=== PATIENT | male | born 1955 | race African-American/Black ===

== ENCOUNTER 2019-07-05 13:10 | Inpatient (IN) ==
[2019-07-05] MEDS ORDERED: ROCEPHIN 1 GM in NS 50 ML IV ONE (13:35)
[2019-07-05] MEDS ORDERED: ZITHROMAX 500 MG/NS 500 MG/250 ML IVPB IV ONE (13:35)
[2019-07-05] MEDS ORDERED: DUONEB (A & A) INH ONE (13:35)
[2019-07-05] MEDS ORDERED: SOLU-MEDROL IV ONE (13:35)
--- NOTE | 2019-07-05 13:57 | Diag Imaging Result Doc PS360 ---
EXAM: CHEST-PORTABLE - 07/05/2019 HISTORY: cough TECHNIQUE: Portable chest COMPARISON: 06/30/2019 FINDINGS: There is cardiomegaly similar to prior. There is mild prominence of central vascular markings and mild prominence of basilar interstitial markings similar to prior. There is no dense consolidation, pleural effusion, or pneumothorax identified. IMPRESSION: Stable exam compared to prior. Electronically signed by Boone Real 07/05/2019 1:55 PM
[2019-07-05 13:59] LABS: BASO# 0.04 X1000 (0.0-0.2); BASO% 0.4 % (0.0-0.8); HEMATOCRIT 32.9 % (42.0-52.0); HEMOGLOBIN 10.1 g/dL (14.0-18.0); LYMPH# 0.95 X1000 (1.2-3.4); LYMPH% 9.5 % (20.5-51.1); MCH 26.3 PG (27-31); MCHC 30.7 g/dL (33-37); MCV 85.7 FL (81-99); MONO# 1.76 X1000 (0.11-0.59); MONO% 17.6 % (1.7-9.3); MPV 8.7 FL (7.4-10.4); NEUT# 7.15 X1000 (1.4-6.5); NEUT% 71.5 % (42.2-75.2); PLT 298 X1000 (130-400); RBC 3.84 XMIL (4.7-6.1); RDW 16.9 % (11.5-14.5)
[2019-07-05 14:18] LABS: ALB/GLOB RATIO 1.4; ALBUMIN 4.2 g/dL (3.5-5.0); CALCIUM 9.2 mg/dL (8.8-10.2); CREATININE 1.5 mg/dL (0.7-1.2); POTASSIUM 3.4 mmol/L (3.5-5.1); TOTAL BILIRUBIN 0.88 mg/dL (0.20-1.00); TOTAL PROTEIN 7.2 g/dL (6.3-8.3)
[2019-07-05] MEDS ORDERED: LASIX IV ONE (14:38)
[2019-07-05 15:05] LABS: URINE SOURCE CLEAN CATCH
--- NOTE | 2019-07-05 15:15 | PROVIDER DOCUMENTATION ---
This chart was entered by Pratibha Lloyd Scribe, acting as scribe for Blanca Kumar MD. HPI-Respiratory General - General Chief Complaint: SEPSIS ALERT - D Stated Complaint: SOB Time Seen by Provider: 07/05/19 13:30 Source: patient Allergies/Adverse Reactions: Patient Allergies Allergy/AdvReac Type Severity Reaction Status Date / Time lisinopril AdvReac Severe ANGIOEDEMA Verified 07/11/18 13:04 Home Medications: Home Medication List Medication Instructions Recorded Confirmed Last Taken Type Amlodipine [Norvasc] 10 mg PO DAILY 07/31/15 07/05/19 07/12/18 05:00 History Fenofibrate 160 mg PO DAILY 07/31/15 07/05/19 07/11/18 History Hydralazine [Apresoline] 50 mg PO TID 07/31/15 07/05/19 07/11/18 History ATORVAstatin [Lipitor] 80 mg PO QHS 07/11/18 07/05/19 07/11/18 History Albuterol Sulfate [Proair Hfa] 8.5 gm IH PRN PRN 07/11/18 07/05/19 Unknown History Apixaban [Eliquis] 5 mg PO DAILY 07/11/18 07/05/19 07/10/18 History Budesonide/Formoterol Fumarate 10.2 gm IH PRN PRN 07/11/18 07/05/19 07/12/18 05:00 History [Symbicort 160-4.5 Mcg Inhaler] Carvedilol 25 mg PO BID 07/11/18 07/05/19 07/12/18 05:00 History Furosemide 40 mg PO DAILY 07/11/18 07/05/19 07/11/18 History Isosorbide Dinitrate 20 mg PO DAILY 07/11/18 07/05/19 07/11/18 History Metolazone 2.5 mg PO EVERY OTHER DAY 07/11/18 07/05/19 07/11/18 History Doxycycline Monohydrate 100 mg PO BID #20 cap 06/30/19 Unknown Rx Tramadol [Ultram] 50 mg PO Q6H PRN PRN #22 tab 06/30/19 Unknown Rx - History of Present Illness-Resp Nature of Presenting Problem: 63 y/o male presents to ED with SOB and productive cough onset 1 week ago and worsening last night. Pt reports he was seen in ED recently for rib pain and dx with bronchitis. Pt states he has not been able to sleep for the past 3 days due to his symptoms. Pt reports hx afib and is on Eliquis. O2 sats in the 80s on room air. Pt states he is not on home O2. Pt has hx COPD. Pt is alert and oriented. Quality of Pain: reports: none Severity in ED: reports: mild Onset/Duration: reports: 1 week ago Timing: reports: still present, getting worse Context: reports: other (hx COPD) Exposure: reports: other (hx COPD) Cough Quality/Degree: reports: productive cough Episode Frequency: chronic episodes (hx COPD) Current Respiratory Medication Therapy: Initiated see nurses note Modifying Factors: improves with: oxygen. worse with: lying down Associated Symptoms: reports: cough (productive), shortness of breath, short of breath Similar Symptoms Previously?: Yes (hx COPD) Recently seen or treated by another doctor?: No Review of Systems - Adult - REVIEW OF SYSTEMS - ADULT Constitutional: denies: chills, fever Eyes: reports: no symptoms reported Ears, Nose, Mouth & Throat: reports: no symptoms reported Cardiovascular: denies: chest pain, palpitations Respiratory: reports: cough (productive), shortness of breath Gastrointestinal: reports: no symptoms reported Genitourinary: reports: no symptoms reported Musculoskeletal: reports: no symptoms reported Integumentary: reports: no symptoms reported Neurological: reports: no symptoms reported Psychiatric: reports: no symptoms reported Endocrine: reports: no symptoms reported Hematologic/Lymphatic: reports: no symptoms reported Allergic/Immunologic: reports: no symptoms reported All Other Systems: Reviewed and Negative Past History - Adult - PAST MEDICAL HISTORY-ADULT Review of Records: reports: Old Records Reviewed, Nursing Assessment Review, Medications Reviewed Major Childhood Illnesses: reports: denies history Cardiovascular: reports: A-Fib, CAD, CHF, HTN Respiratory: reports: COPD Gastrointestinal: reports: denies history Obstetrical/Gynecological: reports: denies history Genitourinary: reports: denies history Musculoskeletal: reports: denies history Neurological: reports: denies history Endocrine/Immune: reports: denies history Other Conditions: reports: denies history - PRIOR SURGERIES/PROCEDURES Surgical/Procedure History: reports: hernia repair - IMMUNIZATION STATUS Childhood Immunizations: See Nurse Assessment Flu Vaccine: See Nurse Assessment - FAMILY HISTORY Family History: reviewed, not pertinent - SOCIAL HISTORY Smoking: greater than 1 pack/day Provider spent 3-5 mins advising pt. on dangers of tobacco.: Discussed manners to quit use, and f/u contacts for add'l counseling. Substance Use: none/never Alcohol Use Frequency: never Living Situation: family Physical Exam-General - PHYSICAL EXAM-ADULT Initial Vital Signs Reviewed: Yes (O2 sat 90% on 2L) - CONSTITUTIONAL General Appearance: appears well, alert, no apparent distress - EYES Eyes: PERRL/EOMI, pink conjunctivae - HEAD, EARS, NOSE, MOUTH & THROAT HENMT: normocephalic/atraumatic, normal ENT inspection. negative: moist mucous membranes (dry) - NECK Neck: non-tender, full range of motion - RESPIRATORY Respiratory: chest non-tender, wheezing (R upper lobe). negative: normal breath sounds (tight breath sounds; minimal air movement) - CARDIOVASCULAR Cardiovascular: normal peripheral pulses, regular rate, rhythm - GASTROINTESTINAL (ABDOMEN) Abdominal Exam: normal bowel sounds, non tender, distended - MUSCULOSKELETAL Back Exam: normal inspection, no CVA tenderness, no vertebral tenderness Extremity: normal range of motion, non-tender - SKIN Integumentary: normal color, warm/dry - NEUROLOGIC Neurologic: grossly normal - PSYCHIATRIC Psych/Mental Status: normal mood/affect, normal thought content, normal thought process, oriented x 3 - HEART Score HEART Score: History: Slightly Suspicious HEART Score: Age: 45-65 Years HEART Score: Risk Factors for Atherosclerotic Disease: > or = 3 Risk Factors or History of Atherosclerotic Disease Progress - PLAN OF CARE/RESULTS Progress/Plan/Lab Results: Vital Signs - 8 hr 07/05/19 13:19 07/05/19 13:52 Temperature 97.8 F Pulse Rate 92 H 82 Respiratory Rate 26 H 23 Blood Pressure 110/74 O2 Sat by Pulse Oximetry 82 L 93 L Laboratory Results - last 24 hr 07/05/19 07/05/19 07/05/19 13:35 13:35 13:37 WBC 10.00 RBC 3.84 L Hgb 10.1 L Hct 32.9 L MCV 85.7 MCH 26.3 L MCHC 30.7 L RDW Std Deviation 16.9 H Plt Count 298 MPV 8.7 Immature Gran % (Auto) 0.0 Neut % (Auto) 71.5 Lymph % (Auto) 9.5 L Garza % (Auto) 17.6 H Eos % (Auto) 1.0 Baso % (Auto) 0.4 Immature Gran # (Auto) 0.00 Neut # (Auto) 7.15 H Lymph # (Auto) 0.95 L Garza # (Auto) 1.76 H Eos # (Auto) 0.10 Baso # (Auto) 0.04 Sodium Potassium Chloride Carbon Dioxide Anion Gap BUN Creatinine Estimated GFR/1.73 m2 BUN/Creatinine Ratio Glucose Calculated Osmolality Calcium Total Bilirubin AST ALT Alkaline Phosphatase Creatine Kinase 117 Troponin T < 0.010 Mbj-A-Bpdccoftygx Pept Total Protein Albumin Globulin Albumin/Globulin Ratio Plasma Lactate Urine Source 07/05/19 07/05/19 07/05/19 13:37 13:37 13:37 WBC RBC Hgb Hct MCV MCH MCHC RDW Std Deviation Plt Count MPV Immature Gran % (Auto) Neut % (Auto) Lymph % (Auto) Garza % (Auto) Eos % (Auto) Baso % (Auto) Immature Gran # (Auto) Neut # (Auto) Lymph # (Auto) Garza # (Auto) Eos # (Auto) Baso # (Auto) Sodium 140 Potassium 3.4 L Chloride 93 L Carbon Dioxide 35 Anion Gap 12 BUN 35 H Creatinine 1.5 H Estimated GFR/1.73 m2 57 BUN/Creatinine Ratio 23 Glucose 112 H Calculated Osmolality 288 Calcium 9.2 Total Bilirubin 0.88 AST 24 ALT 11 Alkaline Phosphatase 98 Creatine Kinase Troponin T Pdl-F-Bpsgtpwyyoy Pept 9093 H Total Protein 7.2 Albumin 4.2 Globulin 3.0 Albumin/Globulin Ratio 1.4 Plasma Lactate 1.2 Urine Source 07/05/19 14:59 WBC RBC Hgb Hct MCV MCH MCHC RDW Std Deviation Plt Count MPV Immature Gran % (Auto) Neut % (Auto) Lymph % (Auto) Garza % (Auto) Eos % (Auto) Baso % (Auto) Immature Gran # (Auto) Neut # (Auto) Lymph # (Auto) Garza # (Auto) Eos # (Auto) Baso # (Auto) Sodium Potassium Chloride Carbon Dioxide Anion Gap BUN Creatinine Estimated GFR/1.73 m2 BUN/Creatinine Ratio Glucose Calculated Osmolality Calcium Total Bilirubin AST ALT Alkaline Phosphatase Creatine Kinase Troponin T Wfo-U-Eiqzzxbheab Pept Total Protein Albumin Globulin Albumin/Globulin Ratio Plasma Lactate Urine Source CLEAN CATCH Orders Category Date Time Status Cardiac Monitoring DIRECTED Care 07/05/19 14:41 Active IV Insertion ORDERED Care 07/05/19 14:41 Active Notify MD of + Sepsis Screen NOW Care 07/05/19 14:41 Active Notify Physician As Ordered Care 07/05/19 14:41 Active Saline Loc NOW Care 07/05/19 13:35 Active CHEST-PORTABLE [RAD] Stat Exams 07/05/19 13:36 Completed BLOOD CULTURE [BLDCUL] Stat Lab 07/05/19 13:39 Results CBC WITH DIFF [HEME] Stat Lab 07/05/19 13:37 Completed CK PROFILE [SP CHEM] Stat Lab 07/05/19 13:35 Completed COMPREHENSIVE METABOLIC PANEL [CHEM] Stat Lab 07/05/19 13:37 Completed LACTATE, PLASMA [CHEM] Q3H Lab 07/05/19 17:30 Uncollected LACTATE, PLASMA [CHEM] Q3H Lab 07/05/19 20:30 Uncollected LACTATE, PLASMA [CHEM] Stat Lab 07/05/19 13:37 Completed PRO B-NATRIURETIC PEPTIDE Stat Lab 07/05/19 13:37 Completed PROTIME WITH INR [COAG] Stat Lab 07/05/19 13:35 Received PTT [COAG] Stat Lab 07/05/19 13:35 Received SPUTUM CULTURE WITH GRAM STAIN [RM] Urgent Lab 07/05/19 13:35 Uncollected TROPONIN T Stat Lab 07/05/19 13:35 Completed URINALYSIS W/POSS RFLX CULT [URINALYSIS] Stat Lab 07/05/19 14:59 Results Albuterol 2.5MG/Ipratrop 0.5MG [Duoneb (A & A)] Med 07/05/19 13:35 Discontinued 9 ml INH NOW ONE Azithromycin 500 mg/Ns [Zithromax 500 mg/Ns] Med 07/05/19 13:35 Discontinued 500 mg in 250 ml IV NOW CefTRIAXONE [Rocephin] 1 gm Med 07/05/19 13:35 Discontinued 0.9% Sodium Chloride Inj [Ns] 50 ml IV NOW Furosemide [Lasix] Med 07/05/19 14:38 Discontinued 40 mg IV NOW ONE Methylprednisolone Sod Succ [Solu-Medrol] Med 07/05/19 13:35 Discontinued 125 mg IV NOW ONE Aerosol Treatments Routine Oth 07/05/19 13:36 Completed Aerosol Treatments Stat Oth 07/05/19 13:36 Completed Oxygen Device Stat Oth 07/05/19 14:41 Completed Pulse Oximetry Stat Oth 07/05/19 13:35 Completed Result Diagrams: 07/05/19 13:37 07/05/19 13:37 - XRAY 1 XRAY Study: Chest Impression: See EMR Report ([facility] - [address], [address], [place] [address] [facility] - [address] [place] [address] Department of Imaging Patient: PRIYA REEDER Date: 07/05/19MR#: [id number] : 1955DM Status: PRE ERAcct#: [id number] Age/Sex: 63/MRoom/Bed: Loc: ED Ordering Physician: Blanca Kumar MD Family Physician: Boone Luo MD Reason for Procedure: cough Signed EXAM: CHEST-PORTABLE - 07/05/2019 HISTORY: cough TECHNIQUE: Portable chest COMPARISON: 06/30/2019 FINDINGS: There is cardiomegaly similar to prior. There is mild prominence of central vascular markings and mild prominence of basilar interstitial markings similar to prior. There is no dense consolidation, pleural effusion, or pneumothorax identified. IMPRESSION: Stable exam compared to prior. Electronically signed by Boone Real 07/05/2019 1:55 PM 07/05/19 1355 Interpreting Physician: Boone Real MD Dictated Date/Time: 07/05/19 1354 cc: Blanca Kumar MD; Boone Espinoza MD) - CONSULTS/PCP/HOSPITALIST Notification #1 *Consult/PCP/Hospitalist*: TOD Roa for hospitalist Time Discussed: 14:43 Reason/Comments: COPD exacerbation Consult Disposition: Admit Departure - Departure Date of Disposition Decision: 07/05/19 Time of Disposition Decision: 14:43 DIAGNOSIS: COPD exacerbation, Tobacco use CHF exacerbation Qualifiers: Heart failure type: unspecified Qualified Code(s): I50.9 - Heart failure, unspecified Disposition: ADMITTED INPATIENT 09 Certified Medical Emergency: Emergent Condition: Stable Referrals and Follow-Ups: Boone Luo MD [Primary Care Provider] - Discharge Education: Steps to Quit Smoking, Pzuw-wk-[id number] - Critical Care Note This patient required my direct & personal management of CC.: No Attestation - Physician/ JACE Attestation Patient care was provided by Advanced Practice Provider:: No The physician spent face to face time with patient:: Yes Advanced Practice Provider documentation review:: Supervising physician onsite and consulted in the evaluation and care of this patient. The physician did have a face to face encounter with the patient. This chart was documented by the indicated scribe, (Pratibha Lloyd, Scribsharlene) and accurately reflects the services I performed and decisions made by me, Blanca Kumar MD, as attested by the provider's signature.
[2019-07-05 15:17] LABS: PROTIME 23.2 Seconds (11.0-16.0)
[2019-07-05 15:22] LABS: BILIRUBIN URINE NEGATIVE (NEGATIVE); BLOOD URINE NEGATIVE (NEGATIVE); COLOR YELLOW; GLUCOSE URINE NEGATIVE (NEGATIVE); KETONE URINE NEGATIVE (NEGATIVE); LEUKOCYTES URINE NEGATIVE (NEGATIVE); NITRITE URINE NEGATIVE (NEGATIVE); PROTEIN URINE NEGATIVE (NEGATIVE); SP GRAVITY URINE 1.017; TURBIDITY URINE CLEAR (CLEAR); UROBILINOGEN URINE NORMAL (NORMAL)
[2019-07-05 15:26] LABS: UR EPITHELIAL CELLS <10 /HPF (<10); URINE BACTERIA NEGATIVE /HPF; URINE RBC <10 /HPF (<10); URINE WBC <10 /HPF (<10)
[2019-07-05 15:41] LABS: URINE CASTS NONE SEEN; URINE CRYSTALS NONE SEEN; URINE YEAST NONE SEEN
[2019-07-05] MEDS ORDERED: DUONEB (A & A) INH PRN (15:41)
[2019-07-05 17:06] LABS: ALLEN TEST NO; BE 13.4 mmoll (-3.0-3.0); BLOOD TYPE ARTERIAL; HCO3-(ACT) 35.2 mmoll (20.0-26.0); METHB 0.8 % (0.0-1.5); O2(CT) 12.7 mL/dL (15.0-23.0); PO2(98.6) 64 mmHg (60-100); SAMPLE BLOOD; SAO2 96.9 % (95.0-100.0); THB 10.4 g/dL (11.5-17.4); pH(98.6) 7.48 (7.35-7.45)
[2019-07-05 17:08] LABS: MODALITY VENTIMASK; O2HB 86.6 % (95.0-99.0); PCO2(98.6) 52 mmHg (35-45)
--- NOTE | 2019-07-05 17:33 | HISTORY AND PHYSICAL ---
HISTORY AND PHYSICAL ADDENDUM: The patient seen and examined by me face to face. All the laboratory, vital signs, and images were reviewed. The patient presented with severe shortness of breath. Apparently, he fell a few days ago and he hit his thorax. He was diagnosed at that time also with bronchitis. He has been having worsening symptoms of shortness of breath for 1 week now. He does have a history of smoking and actually history of smoking around 1 pack a day. He started smoking in 1976. He has a history of atrial fibrillation on chronic anticoagulation, tobacco abuse, hypertension, dyslipidemia, and COPD. He seems to have COPD exacerbation at this moment as he has been coughing up some phlegm which is yellowish. He denies fever. No chest pain, but he complains of shortness of breath. This patient will be placed on oxygen. He is hypoxemic. I will get an ABG done right now to see if he needs to be placed on a BiPAP machine. I will put him back on his home medications as well, including the blood thinners. He will get steroids and breathing treatment as well. I agree with the rest of the nurse practitioner's assessment and plan. cc: Camilo Glasgow MD
--- NOTE | 2019-07-05 18:59 | HISTORY AND PHYSICAL ---
CHIEF COMPLAINT: Shortness of breath. HISTORY OF PRESENT ILLNESS: This is a 63-year-old gentleman with a history of COPD, atrial fibrillation, hypertension, who presents to the emergency room complaining of increasing shortness of breath and a productive cough that has been present for a little over a week. He states in the last 24 hours it progressed and he has been unable to sleep. Of note, he was evaluated in the emergency room for these same symptoms on June 30. At that time he was diagnosed with bronchitis, given doxycycline and tramadol and discharged from the emergency room. He states that after the 2nd or 3rd dose of doxycycline that he started feeling as if his throat was getting "I felt my throat was getting thicker inside maybe swelling and I had to work a little harder to breeze." He also stated that his tongue and lips felt funny. He denied any itching or rash. PAST MEDICAL HISTORY: COPD, atrial fibrillation, hypertension. PAST SURGICAL HISTORY: Hernia repair. SOCIAL HISTORY: He smokes about a pack a day. He denies alcohol or illicit drug use. FAMILY HISTORY IS: Positive for hypertension and COPD in his parents. REVIEW OF SYSTEMS: Discussed with the patient with pertinent positives stated in the HPI. He denies any syncope or dizziness, any chest pain or palpitations, any nausea, vomiting, diarrhea, constipation, black or bloody vomitus or stools, hematuria, dysuria, frequency, urgency. PHYSICAL EXAMINATION: GENERAL: This is a 63-year-old gentleman who is sitting up on the side of the bed in the emergency room in no distress. VITAL SIGNS: Blood pressure is 106/60 with a heart rate of 90, respirations are 17, temperature is 97.8 degrees with room air O2 saturation on arrival was 82, on 2 L nasal cannula they have increased to 90 to 92 percent. HEENT: Head is normocephalic, atraumatic. Mucous membranes are moist. NECK: Supple with trachea midline. CARDIOVASCULAR: Regular rate and rhythm. S1 and S2 are appreciated. PULMONARY: Has wheezes scattered throughout. Chest rises and falls symmetric respiration. Chest wall is nontender to palpation. GASTROINTESTINAL: Abdomen large, soft, nontender, nondistended with bowel sounds in all 4 quadrants. GENITOURINARY: No CVA or suprapubic tenderness. NEUROLOGIC: He is alert and oriented x3. SKIN: Warm and dry. LABS: WBC is 10 with hemoglobin 10.1, hematocrit 32.9 and platelets of 298,000. Sodium 140, potassium 3.4, BUN 35, creatinine 1.5 with a glucose of 112. Troponin is less than 0.010 with a proBNP of 9093. Urinalysis is essentially negative. Chest x-ray reveals cardiomegaly, mild prominence of central vascular markings, mild prominence of basilar interstitial markings similar to prior. There is no dense consolidation, pleural effusions or pneumothorax identified. ASSESSMENT AND PLAN: 1. Chronic obstructive pulmonary disease acute exacerbation. 2. Acute hypoxemic respiratory failure. 3. Acute kidney injury. 4. History of atrial fibrillation on chronic anticoagulation. 5. Hypertension. 6. Possible allergic reaction to doxycycline. PLAN: The patient will be admitted to the medical-surgical floor and placed on telemetry. We will identify home medicines and continue as appropriate. We will obtain an echocardiogram, DuoNeb q.4 hours with q.2 hours p.r.n., steroids to taper. Start Zyrtec, Zantac and Benadryl for possible allergic reaction. Will continue Rocephin and azithromycin for antibiotic coverage. Any further antibiotics will be culture driven. Check a CBC and CMP in the morning. Plan was discussed with Dr. Bergeron. Further treatments pending hospital course. Dictated by TOD Lima for Camilo Glasgow MD cc: TOD Lima MD
[2019-07-05] MEDS: SYMBICORT 160/4.5 MICROGM INHALER INH SCH (19:45)
[2019-07-05] MEDS: DUONEB (A & A) INH SCH ×2 (19:45→23:02)
[2019-07-05] MEDS: ELIQUIS PO SCH (20:12)
[2019-07-05] MEDS: COREG PO SCH (20:12)
[2019-07-05] MEDS: ZANTAC PO SCH (20:12)
[2019-07-05] MEDS: APRESOLINE PO SCH ×2 (23:53)
[2019-07-05] MEDS: BENADRYL PO SCH ×2 (23:54)
[2019-07-05] MEDS: SOLU-MEDROL IV SCH ×2 (23:55)
[2019-07-05] MEDS: ROCEPHIN 1 GM in NS 50 ML IV SCH (23:55)
[2019-07-06 02:19] LABS: ALLEN TEST YES; BE 11.4 mmoll (-3.0-3.0); BLOOD TYPE ARTERIAL; HCO3-(ACT) 33.7 mmoll (20.0-26.0); METHB 1.5 % (0.0-1.5); O2(CT) 12.8 mL/dL (15.0-23.0); PO2(98.6) 60 mmHg (60-100); SAMPLE BLOOD; SAO2 94.1 % (95.0-100.0); THB 10.2 g/dL (11.5-17.4); pH(98.6) 7.42 (7.35-7.45)
[2019-07-06 02:23] LABS: MODALITY PRB; O2HB 88.8 % (95.0-99.0); PCO2(98.6) 58 mmHg (35-45)
[2019-07-06] MEDS: DUONEB (A & A) INH SCH ×6 (03:50→23:50)
[2019-07-06 05:25] LABS: HEMATOCRIT 32.2 % (42.0-52.0); HEMOGLOBIN 9.8 g/dL (14.0-18.0); LYMPH# 0.38 X1000 (1.2-3.4); LYMPH% 5.7 % (20.5-51.1); MCH 26.3 PG (27-31); MCHC 30.4 g/dL (33-37); MCV 86.3 FL (81-99); MONO# 0.29 X1000 (0.11-0.59); MONO% 4.3 % (1.7-9.3); MPV 8.7 FL (7.4-10.4); PLT 283 X1000 (130-400); RBC 3.73 XMIL (4.7-6.1); RDW 17.1 % (11.5-14.5); WBC 6.67 X1000 (4.8-10.8)
[2019-07-06 05:29] LABS: AGAP 15; ALB/GLOB RATIO 1.2; ALBUMIN 3.7 g/dL (3.5-5.0); ALKALINE PHOSPHATASE 89 U/L (32-122); BUN 41 mg/dL (8-22); CALCIUM 9.4 mg/dL (8.8-10.2); CHLORIDE 96 mmol/L (98-107); COSMO 298; CREATININE 1.3 mg/dL (0.7-1.2); ESTIMATED GFR > 60; GLUCOSE 152 mg/dL (70-104); GOT 21 U/L (10-34); GPT 10 U/L (10-44); POTASSIUM 3.5 mmol/L (3.5-5.1); SODIUM 143 mmol/L (136-145); TCO2 32 mmol/L (25-35); TOTAL BILIRUBIN 0.61 mg/dL (0.20-1.00); TOTAL PROTEIN 6.9 g/dL (6.3-8.3)
[2019-07-06] MEDS: PRILOSEC PO SCH (06:34)
[2019-07-06] MEDS: ZYRTEC PO SCH ×2 (06:35→08:53)
[2019-07-06] MEDS: SYMBICORT 160/4.5 MICROGM INHALER INH SCH ×2 (08:15→20:20)
[2019-07-06] MEDS: COREG PO SCH ×2 (08:50→20:30)
[2019-07-06] MEDS: APRESOLINE PO SCH (08:53)
[2019-07-06] MEDS: ZANTAC PO SCH ×2 (08:53→20:30)
[2019-07-06] MEDS: ELIQUIS PO SCH ×2 (08:53→20:30)
[2019-07-06] MEDS: BENADRYL PO SCH ×2 (08:54→15:04)
[2019-07-06] MEDS: SOLU-MEDROL IV SCH ×3 (08:54→20:30)
[2019-07-06] MEDS: NORVASC PO SCH (08:56)
[2019-07-06 10:42] LABS: ALLEN TEST NO; BE 11.8 mmoll (-3.0-3.0); BLOOD TYPE ARTERIAL; HCO3-(ACT) 33.9 mmoll (20.0-26.0); O2(CT) 12.2 mL/dL (15.0-23.0); PO2(98.6) 51 mmHg (60-100); SAMPLE BLOOD; THB 10.1 g/dL (11.5-17.4); pH(98.6) 7.38 (7.35-7.45)
[2019-07-06 10:44] LABS: MODALITY PRB
[2019-07-06 10:47] LABS: O2HB 85.6 % (95.0-99.0); PCO2(98.6) 66 mmHg (35-45)
[2019-07-06] MEDS: ISORDIL PO SCH (12:49)
[2019-07-06] MEDS: ZITHROMAX 500 MG/NS 500 MG/250 ML IVPB IV SCH (12:54)
--- NOTE | 2019-07-06 13:55 | PROGRESS NOTE ---
DATE: 07/06/2019 SUBJECTIVE: This patient is lying comfortably in bed. As per the patient, he feels a little bit better compared with yesterday, but his oxygen requirement is higher today. I will increase the frequency of the steroids. Apparently, he was a little bit confused during the night. He is on a nonrebreathing mask at this moment, and the oxygen saturation is around 90. I will continue breathing treatment. I will continue with antibiotics and oxygen supplementation. I have requested also an evaluation by Pulmonary Department. OBJECTIVE: Vital Signs: Temperature 98 degrees, pulse 85, respiratory rate 19, blood pressure 101/66, oxygen saturation 90 on a nonrebreathing mask. HEENT: Head normocephalic. No trauma. PERRLA. Neck: Supple. No JVD. No masses. Central trachea. Chest: Decreased breath sounds globally with prolonged expiratory phase and bilateral wheezing, mostly expiratory. Abdomen: Soft, protuberant, nontender, nondistended. No hepatosplenomegaly. Extremities: No edema, no clubbing, no cyanosis. Neurological: The patient is alert. He is a little bit sleepy, but he is answering all my questions. LABORATORY DATA: WBC 6.6, hemoglobin 9.8, hematocrit 32.2, platelets 283,000. Sodium 143, potassium 3.5, chloride 96, bicarbonate 32, BUN 41, creatinine 1.3, glucose 152, calcium 9.4. AST 21, ALT 10, alkaline phosphatase 89, albumin 3.7. ASSESSMENT AND PLAN: 1. Chronic obstructive pulmonary disease exacerbation. I will continue with breathing treatments. I will increase the frequency of the steroids. I will continue with antibiotics and oxygen supplementation. I have requested an evaluation by Pulmonary Department. 2. Acute hypoxemic and hypercarbic respiratory failure, likely due #1. Continue with the same management. 3. Acute on probably chronic kidney disease. His last lab work with us was in 07/2018 with a creatinine of 1.1. I do not know exactly his baseline. It has been higher before. Today, his creatinine is 1.3. We will continue to monitor. 4. History of atrial fibrillation, on chronic anticoagulation. Continue with blood thinners. Continue with the same management. 5. Hypertension, stable. Actually, I have stopped some of his blood pressure medication because his blood pressure has been borderline low. 6. Normocytic anemia. I will ask for an anemia workup. Elevated ProBNP at 9000. I do not have any previous results. We have requested an echocardiogram, pending results. 7. Tobacco abuse. This patient is still smoking around 1 pack a day, and he has been smoking since 1976. This patient has been highly advised against tobacco use. Will continue with daily cessation education. Time discussing tobacco abuse and cessation was around 5 minutes. cc: Camilo Glasgow MD
[2019-07-06] MEDS: ROCEPHIN 1 GM in NS 50 ML IV SCH (16:14)
--- NOTE | 2019-07-06 18:16 | Diag Imaging Result Doc PS360 ---
EXAM: US ABDOMEN-COMPLETE HISTORY: abdominal distention, ? ascites TECHNIQUE: Abdominal ultrasound COMPARISON: None. FINDINGS: There is a moderate amount of abdominal ascites. The spleen is not enlarged. No focal hepatic abnormality. The common bile duct measures 6 mm. The gallbladder is not seen. The left kidney is also poorly seen. The pancreas and distal aorta are obscured. Normal inferior vena cava. The kidneys are hyperechogenic. No hydronephrosis. IMPRESSION: 1.Moderate ascites 2.Hyperechoic kidneys which can be seen with medical renal disease Electronically signed by Shashank Cartagena 07/06/2019 6:13 PM
--- NOTE | 2019-07-06 23:47 | PULMONOLOGY CONSULTATION ---
DATE: 07/06/2019 REQUESTING PHYSICIAN: Dr. Bergeron. REASON FOR CONSULTATION: Respiratory failure and COPD. HISTORY OF PRESENT ILLNESS: Mr. Barcenas is a 63-year-old black male with a history of alcohol use, ongoing tobacco use, history of COPD, and history of recurrent ascites, who presented to the emergency room yesterday with increased cough and, increased shortness of breath. The patient oxygen saturation on room air was low at 82%, and he denies home oxygen therapy. The patient carries a diagnosis of COPD, but no PFTs are available for review. The patient indicates he has had increased lower extremity edema along with abdominal swelling. He has been admitted to a hospital in [place] 3 to 4 weeks ago, but does not remember the name of the facility. He was evaluated by Dr. Stewart in May who ordered an ultrasound-guided thoracentesis and 5.8 L of yellow brown cloudy fluid was aspirated. No chemistries from that thoracentesis are available for review. PAST MEDICAL HISTORY/PROBLEM LIST: 1. Chronic obstructive pulmonary disease. 2. Nicotine addiction with ongoing nicotine use. 3. Atrial fibrillation. 4. Recurrent ascites. 5. Hypertension. 6. Umbilical hernia repair. SOCIAL HISTORY: Ongoing tobacco use. The patient reports he has not had anything to drink for several months. REVIEW OF SYSTEMS: Notable for increased shortness of breath, cough without sputum production, increasing abdominal distention, increasing lower extremity edema, increasing shortness of breath, but otherwise negative. PHYSICAL EXAMINATION: General: Reveals a mildly obese male with mild abdominal protuberance resting comfortably. He does develop dyspnea when he lays back flat. OBJECTIVE: Vital Signs: The patient has been afebrile during this hospitalization. Blood pressure is 101/66, heart rate 85, respiratory rate 19, oxygen saturation 90%. HEENT: Pupils are equal and reactive. Oropharynx appears clear. Neck: Supple. Chest: Reveals shallow breath sounds bilaterally. Cardiac: Irregular irregular. Normal S1. Normal S2. Abdomen: Obese with positive fluid wave on exam. Extremities: Reveal 1+ peripheral edema. LABORATORY DATA: Sodium 143, potassium 3.5, chloride 96, bicarbonate 32, BUN 41, creatinine 1.3, glucose 152. ProBNP is significantly elevated at 9093. IMAGING: Chest x-ray reveals significant cardiomegaly with mild vascular prominence. Arterial blood gas on partial rebreather reveals a pH of 7.42, pCO2 of 58, pO2 of 60. IMPRESSION: A 63-year-old with: 1. Acute hypoxemic respiratory failure. 2. Chronic hypoxemic respiratory failure suspected. 3. Chronic hypercapnic respiratory failure. 4. Ascites suspected on exam. This is likely further compromising his pulmonary status. 5. Chronic obstructive pulmonary disease. 6. Nicotine addiction with ongoing tobacco use. 7. Heart failure. Suspect the patient has component of cor pulmonale. 8. Atrial fibrillation. RECOMMENDATIONS: 1. Obtain ultrasound of the abdomen. If the patient has ascites, it is recommended that he undergo paracentesis to improve his ventilatory capacity. 2. Agree with plans for echocardiogram. The patient has significant cardiac enlargement. 3. Anticipate the need for oxygen and/or CPAP at the time of discharge. 4. The patient was strongly encouraged to discontinue tobacco use. cc: David Babb MD
[2019-07-07] MEDS ORDERED: HALDOL IM ONE (00:41)
[2019-07-07] MEDS: SOLU-MEDROL IV SCH ×4 (01:36→23:34)
[2019-07-07] MEDS: DUONEB (A & A) INH SCH ×6 (03:40→23:29)
[2019-07-07 05:11] LABS: ALLEN TEST YES; BE 13.1 mmoll (-3.0-3.0); BLOOD TYPE ARTERIAL; HCO3-(ACT) 35.1 mmoll (20.0-26.0); METHB 1.2 % (0.0-1.5); O2(CT) 11.1 mL/dL (15.0-23.0); O2HB 93.3 % (95.0-99.0); PO2(98.6) 71 mmHg (60-100); SAMPLE BLOOD; SAO2 96.7 % (95.0-100.0); THB 8.4 g/dL (11.5-17.4)
[2019-07-07 05:14] LABS: MODALITY BI PAP; PCO2(98.6) 64 mmHg (35-45)
[2019-07-07 05:27] LABS: HEMATOCRIT 30.6 % (42.0-52.0); HEMOGLOBIN 9.2 g/dL (14.0-18.0); IMM GRAN# 0.03 X1000 (0.0-0.04); IMM GRAN% 0.2 % (0.0-0.5); LYMPH# 0.29 X1000 (1.2-3.4); LYMPH% 1.9 % (20.5-51.1); MCH 26.1 PG (27-31); MCHC 30.1 g/dL (33-37); MCV 86.7 FL (81-99); MONO# 0.79 X1000 (0.11-0.59); MONO% 5.2 % (1.7-9.3); MPV 9.3 FL (7.4-10.4); NEUT# 14.16 X1000 (1.4-6.5); NEUT% 92.7 % (42.2-75.2); PLT 284 X1000 (130-400); RBC 3.53 XMIL (4.7-6.1); RDW 17.1 % (11.5-14.5); WBC 15.27 X1000 (4.8-10.8)
[2019-07-07 05:45] LABS: IRON SATURATION 3 %; TIBC 456 ug/dL; TOTAL IRON 14 ug/dL (53-167); UNBOUND IRON 442 ug/dL (112-346)
[2019-07-07 05:51] LABS: ALB/GLOB RATIO 1.3; ALBUMIN 3.7 g/dL (3.5-5.0); CALCIUM 9.2 mg/dL (8.8-10.2); CREATININE 2.1 mg/dL (0.7-1.2); POTASSIUM 3.9 mmol/L (3.5-5.1); TOTAL BILIRUBIN 0.46 mg/dL (0.20-1.00); TOTAL PROTEIN 6.6 g/dL (6.3-8.3)
[2019-07-07 05:57] LABS: LYMPHS 2 % (21-51); MONO 6 % (1-9); SEGS 92 % (42-75)
[2019-07-07 06:04] LABS: FERRITIN 31 ng/mL (30-400)
[2019-07-07] MEDS: PRILOSEC PO SCH (06:34)
[2019-07-07] MEDS: SYMBICORT 160/4.5 MICROGM INHALER INH SCH ×2 (07:44→19:26)
--- NOTE | 2019-07-07 08:15 | ECHO REPORT ---
ORDER DATE: 07/05/2019 INTERPRETING PHYSICIAN: Dr. Snow REQUESTING PHYSICIAN: CLINICAL INDICATIONS: This is a 63-year-old male with cardiomegaly, dyspnea. M-MODE MEASUREMENTS: Right ventricle: cm. Left ventricle end diastole: 4.4 cm. Left ventricle end systole: 3.0 cm. Posterior wall: 1.2 cm. Interventricular septum: 1.1 cm. Left atrium: Appears to be 5.2 cm. Aortic root: 3.2 cm. SUMMARY OF 2-DIMENSIONAL IMAGIN. The study is difficult. 2. The left ventricle seems to have normal function. Ejection fraction is 59%. The patient is in atrial fibrillation. 3. The right ventricle appears to be significantly enlarged. 4. The global function of the right ventricle appears to be mildly decreased. 5. The right atrium is markedly dilated. 6. The left atrium is also dilated fairly significantly. 7. There is a trace of pericardial effusion, probably physiologic. 8. The inferior vena cava is significantly dilated, and it is not showing any signs of significant respiratory variation. 9. Mitral annulus shows moderate calcification. 10.Color flow mapping of mitral valve indicates moderate degree of regurgitation. 11.Diastolic function cannot be properly evaluated because of the atrial fibrillation. 12.The pulmonic valve looks normal. Color flow mapping is unremarkable. 13.Aortic valve shows sclerosis of the cusps. Color flow mapping is unremarkable. 14.The tricuspid valve shows moderately severe degree of regurgitation. 15.The pulmonary systolic pressure is estimated to be somewhere in the range of 69 to 74 mmHg. 16.There is no evidence of masses or thrombus. Clinical correlation is recommended. cc: MD Kayla Simmons CRNP
[2019-07-07] MEDS ORDERED: ZAROXOLYN PO SCH (09:00)
[2019-07-07] MEDS ORDERED: LASIX PO SCH (09:00)
--- NOTE | 2019-07-07 09:44 | Diag Imaging Result Doc PS360 ---
EXAM: US ABD PARACENTESIS W S/I HISTORY: Ascitis TECHNIQUE: Ultrasound-guided paracentesis COMPARISON: None. FINDINGS: Prior to the procedure I discussed the risk and benefits with the patient. Primary risks include bleeding, infection, bowel injury, and liver injury. Questions were answered. Consent was given. The permit was signed. Ultrasound was used to localize the largest fluid collection in the right abdomen. This area was cleaned and draped in the normal fashion. Lidocaine was used as a local anesthetic. Needle and catheter were advanced into the fluid collection on the first attempt without difficulty. The needle was withdrawn. The catheter was hooked to suction. Approximately 7.2 L were withdrawn without difficulty. The catheter was then withdrawn. No immediate postprocedural complications. IMPRESSION: Successful ultrasound-guided paracentesis. Electronically signed by Shashank Cartagena 07/07/2019 9:42 AM
[2019-07-07 10:50] LABS: BODY FLUID SOURCE PERITONEAL FLUID; WBC BF 109 /cumm
[2019-07-07 10:51] LABS: MONOS 60 %; POLYS 40 %
[2019-07-07] MEDS: NORVASC PO SCH (11:23)
[2019-07-07] MEDS: ZANTAC PO SCH ×2 (11:24→21:00)
[2019-07-07] MEDS: ZYRTEC PO SCH (11:24)
[2019-07-07] MEDS: ELIQUIS PO SCH ×2 (11:25→21:00)
[2019-07-07] MEDS: COREG PO SCH ×2 (11:25→21:00)
[2019-07-07] MEDS: ISORDIL PO SCH (11:26)
[2019-07-07] MEDS: FOLIC ACID PO SCH (11:30)
--- NOTE | 2019-07-07 11:33 | PROGRESS NOTE ---
DATE: 07/07/2019 SUBJECTIVE: Patient is lying comfortably in bed. He is completely alert and oriented x3 at this moment and he is feeling better. He just came back from an ultrasound guided paracentesis, and like I said he feels better. He is on a nonrebreathing mask. At this moment his oxygen saturation is around 90, he is not wheezing too much, so I will decrease the dose of the steroids from 60 q.6 hours to 40 q.8 hours and hopefully we are going to start decreasing the amount slowly. OBJECTIVE: Vital Signs: Temperature 97.3 degrees, pulse 79, respiratory rate 20, blood pressure 115/81, Oxygen saturation 92 on a nonrebreathing mask. HEENT: Head normocephalic, no trauma PERRLA. Neck: Supple. No JVD. No masses. Central trachea. Chest: Decreased breath sounds globally with prolonged expiratory phase and faint expiratory wheezing. Abdomen: Soft, is less protuberant compared with yesterday. Nontender, nondistended. No hepatosplenomegaly. Extremities: No edema, no clubbing, no cyanosis. Neurological: The patient is alert. He is oriented x3. No focal deficits. LABORATORY: WBC 15.2, hemoglobin 9.2, hematocrit 30.6, platelets 284,000. Sodium 140, potassium 3.9, chloride 94, bicarbonate 35, BUN 54, creatinine 2.1. Glucose 149, calcium 9.2. ASSESSMENT/PLAN: 1. COPD exacerbation. I will continue breathing treatment. I have decreased the frequency and amount of the steroids. I will continue with antibiotics oxygen supplementation. Pulmonary Department on board. 2. Acute hypoxemic and hypercarbic respiratory failure due to #1. 3. Acute on probably chronic kidney disease. I do not know exactly his baseline, but it has been higher before. Today his creatinine is elevated at 2.1. I instructed the patient that he needs to eat and drink properly. He just had a paracentesis done, lets see how he does. 4. Abdominal distention with ascites, status post paracentesis, aware. 5. History of atrial fibrillation, on chronic anticoagulation. Continue with the same management. 6. Hypertension, stable. We will reassume all the blood pressure medications once his blood pressure is more elevated and/or stable. 7. Normocytic anemia, likely due to iron deficiency, we will put this patient on iron treatment upon discharge. 8. History of tobacco abuse. This patient has been highly advised against tobacco use will continue with daily cessation education, he is still smoking 1 pack a day and he has been smoking since 1976. cc: Camilo Glasgow MD
[2019-07-07 12:26] LABS: ALBUMIN BODY FLUID 2.4 g/dL; LDH BODY FLUID 127 U/L
[2019-07-07] MEDS: ZITHROMAX 500 MG/NS 500 MG/250 ML IVPB IV SCH (12:56)
[2019-07-07] MEDS: ROCEPHIN 1 GM in NS 50 ML IV SCH (16:05)
--- NOTE | 2019-07-07 21:03 | PULMONOLOGY PROGRESS NOTE ---
DATE: 07/07/2019 SUBJECTIVE: Patient was seen earlier this morning. He had just returned from having a paracentesis performed. 7.2 L were withdrawn from his abdominal cavity. He reports his breathing has markedly improved. OBJECTIVE: Vital Signs: Patient has been afebrile for the last 24 hours. Blood pressure 115/81, heart rate 79, respiratory rate 20, oxygen saturation 92%. HEENT: Pupils are equal and reactive. Oropharynx appears clear. Neck: Supple. Chest: Good air entry bilaterally without wheezing or rhonchi. Cardiac: S1, S2. Abdomen: Significantly softer. Extremities: There is decreased peripheral edema. IMPRESSION: 63-year-old with: 1. Acute hypoxemic respiratory failure. 2. Chronic hypoxemic respiratory failure. 3. Chronic hypercapnic respiratory failure. 4. Significant improvement in pulmonary status after he underwent a 7 L paracentesis. 5. Chronic obstructive pulmonary disease. 6. Nicotine addiction with ongoing tobacco use. 7. Acute on chronic cor pulmonale. 8. Atrial fibrillation. RECOMMENDATIONS: 1. Continue oxygen for hypoxemic respiratory failure. 2. Encourage smoking cessation. 3. Anticipate oxygen at the time of discharge. cc: David Babb MD
[2019-07-07] MEDS: NICODERM PATCH TD PRN (21:16)
[2019-07-08] MEDS: DUONEB (A & A) INH SCH ×6 (03:15→23:00)
[2019-07-08 05:15] LABS: HEMATOCRIT 30.9 % (42.0-52.0); HEMOGLOBIN 9.4 g/dL (14.0-18.0); IMM GRAN# 0.03 X1000 (0.0-0.04); IMM GRAN% 0.2 % (0.0-0.5); LYMPH# 0.49 X1000 (1.2-3.4); MCH 25.8 PG (27-31); MCHC 30.4 g/dL (33-37); MCV 84.7 FL (81-99); MONO# 1.11 X1000 (0.11-0.59); MONO% 6.8 % (1.7-9.3); MPV 9.2 FL (7.4-10.4); PLT 272 X1000 (130-400); RBC 3.65 XMIL (4.7-6.1); RDW 16.8 % (11.5-14.5); WBC 16.23 X1000 (4.8-10.8)
[2019-07-08 05:46] LABS: ALB/GLOB RATIO 1.2; ALBUMIN 3.3 g/dL (3.5-5.0); CALCIUM 8.4 mg/dL (8.8-10.2); CREATININE 2.2 mg/dL (0.7-1.2); POTASSIUM 3.7 mmol/L (3.5-5.1); TOTAL BILIRUBIN 0.37 mg/dL (0.20-1.00)
[2019-07-08] MEDS: PRILOSEC PO SCH (06:32)
[2019-07-08] MEDS: SYMBICORT 160/4.5 MICROGM INHALER INH SCH ×2 (07:46→19:44)
--- NOTE | 2019-07-08 07:57 | Diag Imaging Result Doc PS360 ---
CHEST-2 VIEWS - 07/08/2019 INDICATION: abnormal exam COMPARISON: 07/05/2019 FINDINGS: There is a new small left pleural effusion and new trace right pleural effusion. Stable cardiomegaly. Pulmonary vascularity is top normal. No infiltrates. IMPRESSION: Small pleural effusions. Electronically signed by Brien Finley 07/08/2019 7:55 AM
[2019-07-08] MEDS: SOLU-MEDROL IV SCH ×3 (08:43→23:23)
[2019-07-08] MEDS: NORVASC PO SCH (08:43)
[2019-07-08] MEDS: ISORDIL PO SCH (08:44)
[2019-07-08] MEDS: FOLIC ACID PO SCH (08:44)
[2019-07-08] MEDS: ZANTAC PO SCH ×2 (08:44→20:39)
[2019-07-08] MEDS: ZYRTEC PO SCH (08:44)
[2019-07-08] MEDS: ELIQUIS PO SCH ×2 (08:44→20:40)
[2019-07-08] MEDS: COREG PO SCH ×2 (08:44→20:39)
[2019-07-08 11:05] LABS: HEMOGLOBIN A1C 5.7 % (4.8-6.0)
[2019-07-08] MEDS: ZITHROMAX 500 MG/NS 500 MG/250 ML IVPB IV SCH (12:48)
--- NOTE | 2019-07-08 15:01 | PROGRESS NOTE ---
DATE: 07/08/2019 INTERVAL HISTORY: The patient remains on 15 L of oxygen a minute. Saturations look pretty good on that, so likely there is room to wean down. Symptomatically much improved status post paracentesis yesterday where they got 7.2 L off of him. No acute events overnight. No new complaints. REVIEW OF SYSTEMS: Twelve point review of systems negative except as per interval history. LABS: WBC 16.2, hemoglobin 9.4, hematocrit 30.9, platelets 272,000. Sodium 135, potassium 3.7, bicarb 39, BUN 59, creatinine 2.2, glucose 201. Paracentesis fluid with 109 white cells, 40% neutrophils, 60% mononuclear cells, albumin 2.4. LDH 127. Serum protein 6.6 at that time. IMAGING: Chest x-ray with small bilateral pleural effusions. Otherwise, no acute process. VITAL SIGNS: T-max 98.6 degrees, pulse 87, respirations 14, blood pressure 106/77, O2 saturation 97% on non-rebreather. PHYSICAL EXAMINATION: General: No acute distress. Vital signs: As above. HEENT: Normocephalic, atraumatic. Moist mucous membranes. Cardiovascular: Regular rate and rhythm. No murmurs noted. Pulmonary: Decreased breath sounds throughout. No wheezing currently. Abdomen: Soft, nondistended. Bowel sounds positive. Extremities: Peripheral pulses intact. No clubbing or cyanosis. Neurologic: Cranial nerves grossly intact. No focal deficits identified. Psychiatric: Normal mood and affect. Awake, alert, oriented x3. Skin: No jaundice. No new rashes or lesions noted. ASSESSMENT AND PLAN: 1. Chronic obstructive pulmonary disease exacerbation with chronic hypercarbic respiratory failure and acute on likely chronic hypoxic respiratory failure. Still decreased breath sounds, but wheezing significantly improved, really resolved at this point. Still on significant oxygen but a little less than previous. Will wean oxygen down as possible. Currently on antibiotics with Rocephin and azithromycin. Not really any evidence of pneumonia currently, but will let the antibiotics ride another day or 2. Does have fairly significant leukocytosis which is trending up slightly, which may be steroid related. But again, we will keep the antibiotics on board for least 1 more day. Pulmonology following. 2. Acute kidney injury on likely chronic kidney disease 3. Creatinine up to 2.2 today. Holding Lasix and metolazone. Monitor urine output. 3. Ascites. Patient with chronic ascites of unclear etiology. Has had to have a paracentesis in the past. Status post paracentesis here with 7.2 L off 07/07. Continue to monitor. 4. Paroxysmal atrial fibrillation. Patient on chronic anticoagulation, but has been largely normal sinus rhythm here. Monitor. 5. Hypertension. Blood pressure a little on the low side here so his home isosorbide and diuretics are on hold currently. We will go ahead and stop his Norvasc entirely for now. 6. Anemia, iron deficiency versus anemia of chronic disease. Iron studies pending. 7. Tobacco abuse. Patient has been advised on cessation. 8. Disposition. The patient is symptomatically improved status post paracentesis, but still requiring a large amount of oxygen. Continue efforts at trying to maximize his respiratory function. Will likely need home O2 on discharge, but we will try to get him down to something that he can actually be on at home.
[2019-07-08] MEDS: ROCEPHIN 1 GM in NS 50 ML IV SCH (16:41)
[2019-07-08] MEDS: NICODERM PATCH TD PRN (20:45)
--- NOTE | 2019-07-08 22:45 | PULMONOLOGY PROGRESS NOTE ---
DATE: 07/08/2019 SUBJECTIVE: The patient is awake, alert, and conversant. He reports his breathing is significantly improved. OBJECTIVE: Vital Signs: The patient's systolic blood pressure has been slightly greater than 100 the majority of the last 24 hours. The patient has been afebrile. Oxygen saturation has remained 93 or above on current oxygen delivery device. HEENT: Pupils are equal and reactive. Oropharynx appears clear. Neck: Is supple. Chest: Reveals good air entry bilaterally with slight decreased breath sounds in the lung bases. Cardiac exam: S1-S2. Abdomen: Is soft with mild distention. Extremities: Reveal trace edema. LABORATORIES: Sodium 135, potassium 3.7, chloride 92, bicarbonate 39, BUN 59, creatinine 2.2. IMPRESSION: A 63-year-old with 1. Acute hypoxemic respiratory failure. 2. Chronic hypoxemic respiratory failure. 3. Chronic hypercapnic respiratory failure. 4. Recurrent ascites. 5. Moderate to severe pulmonary hypertension. 6. Stage 3 to 4 kidney disease. 7. Acute on chronic cor pulmonale. 8. Nicotine addiction with ongoing tobacco use. 9. Atrial fibrillation. PLAN: 1. Continue to monitor intake and output and diurese if tolerated. 2. Continue oxygen for hypoxemic respiratory failure. 3. Encourage smoking cessation. 4. Overall prognosis appears to be guarded with recurrent ascites. cc: David Babb MD
[2019-07-09] MEDS: DUONEB (A & A) INH SCH ×6 (03:52→23:06)
[2019-07-09 04:43] LABS: ALLEN TEST YES; BE 12.7 mmoll (-3.0-3.0); BLOOD TYPE ARTERIAL; HCO3-(ACT) 34.8 mmoll (20.0-26.0); METHB 1.2 % (0.0-1.5); O2(CT) 13.2 mL/dL (15.0-23.0); O2HB 94.3 % (95.0-99.0); PO2(98.6) 75 mmHg (60-100); SAMPLE BLOOD; SAO2 97.7 % (95.0-100.0); THB 9.9 g/dL (11.5-17.4); pH(98.6) 7.41 (7.35-7.45)
[2019-07-09 04:50] LABS: MODALITY PRB; PCO2(98.6) 62 mmHg (35-45)
[2019-07-09] MEDS: PRILOSEC PO SCH (06:01)
[2019-07-09 07:55] LABS: HEMATOCRIT 31.7 % (42.0-52.0); HEMOGLOBIN 9.7 g/dL (14.0-18.0); IMM GRAN# 0.04 X1000 (0.0-0.04); IMM GRAN% 0.3 % (0.0-0.5); LYMPH# 0.37 X1000 (1.2-3.4); LYMPH% 2.4 % (20.5-51.1); MCH 25.8 PG (27-31); MCHC 30.6 g/dL (33-37); MCV 84.3 FL (81-99); MONO# 1.05 X1000 (0.11-0.59); MONO% 6.8 % (1.7-9.3); MPV 9.6 FL (7.4-10.4); NEUT# 13.96 X1000 (1.4-6.5); NEUT% 90.5 % (42.2-75.2); PLT 260 X1000 (130-400); RBC 3.76 XMIL (4.7-6.1); RDW 16.6 % (11.5-14.5); WBC 15.42 X1000 (4.8-10.8)
[2019-07-09 08:11] LABS: BANDS 2 % (0-1); HYPOCHROM 1+; LYMPHS 4 % (21-51); MONO 10 % (1-9); SEGS 84 % (42-75)
[2019-07-09 08:25] LABS: CALCIUM 8.8 mg/dL (8.8-10.2); CREATININE 1.8 mg/dL (0.7-1.2); POTASSIUM 4.3 mmol/L (3.5-5.1)
[2019-07-09] MEDS: SYMBICORT 160/4.5 MICROGM INHALER INH SCH ×2 (08:25→19:36)
[2019-07-09] MEDS: COREG PO SCH ×2 (10:22→21:01)
[2019-07-09] MEDS: ZANTAC PO SCH ×2 (10:22→21:00)
[2019-07-09] MEDS: ISORDIL PO SCH (10:22)
[2019-07-09] MEDS: FOLIC ACID PO SCH (10:22)
[2019-07-09] MEDS: ELIQUIS PO SCH ×2 (10:22→20:59)
[2019-07-09] MEDS: SOLU-MEDROL IV SCH ×2 (10:23→16:18)
[2019-07-09] MEDS: ZYRTEC PO SCH (10:25)
[2019-07-09] MEDS: ZITHROMAX 500 MG/NS 500 MG/250 ML IVPB IV SCH (14:20)
[2019-07-09] MEDS: ROCEPHIN 1 GM in NS 50 ML IV SCH (16:18)
[2019-07-09] MEDS: NICODERM PATCH TD PRN (18:15)
--- NOTE | 2019-07-09 20:21 | PROGRESS NOTE ---
DATE: 07/09/2019 INTERVAL HISTORY: The patient remains on non-rebreather this morning, but appears to have significant room to wean oxygen. Some dyspnea on exertion, but pretty comfortable at rest. No other acute events. No new complaints aside from wanting to get up and ambulate. REVIEW OF SYSTEMS: A 12-point review of systems negative, except as per interval history. LABORATORY DATA: WBC 15.4, hemoglobin 9.7, hematocrit 31.7, and platelets 260,000. ABG with pH 7.4, pCO2 of 62, PO2 of 75, on 80% FiO2. Sodium 141, potassium 4.3, BUN 59, creatinine 1.8, glucose 158. BNP 7113. VITALS: Temperature max 98.8 degrees, pulse 91, respirations 18, blood pressure 106/67, O2 saturation 100% on nonrebreather. PHYSICAL EXAMINATION: General: No acute distress. Vitals: As above. HEENT: Normocephalic, atraumatic. Moist mucous membranes. Cardiovascular: Regular rate and rhythm. No murmurs noted. Pulmonary: Significantly decreased breath sounds throughout approximately stable. No wheezing noted. Abdomen: Soft, nondistended. Bowel sounds positive. Extremities: Peripheral pulses intact. No clubbing or cyanosis. Neurologic: Cranial nerves grossly intact. No focal deficits identified. Psychiatric: Normal mood and affect. Awake, alert, oriented x3. Skin: No new rashes or lesions noted. ASSESSMENT AND PLAN: 1. Chronic obstructive pulmonary disease exacerbation with chronic hypercarbic respiratory failure and acute on likely chronic hypoxic respiratory failure. No further wheezing, but still with markedly decreased breath sounds throughout. Still on non- rebreather, but appears to have significant room to wean oxygen. Discussed with nursing staff to try and wean his oxygen. We will see if we can wean that down. Currently, on antibiotics with Rocephin and azithromycin, but not really any evidence of pneumonia currently. We will recheck chest x-ray in the morning, and if it remains clear, then we will likely discontinue antibiotics at that time. We will continue weaning steroids. Pulmonology following. We will restart Lasix as kidney function is improving. Echocardiogram showed pulmonary hypertension with normal ejection fraction. 2. Acute kidney injury on likely chronic kidney disease 3. Creatinine trending down significantly. We will continue holding metolazone, but go ahead and start back the Lasix. Monitor urine output. 3. Ascites. Patient with chronic ascites likely related to alcoholic cirrhosis. Has had multiple paracenteses in the past. Status post paracentesis here with 7.2 L off on 07/07/2019. Continue to monitor. 4. Paroxysmal atrial fibrillation. Patient on chronic anticoagulation, but has been in normal sinus rhythm for the most part here. Monitor. 5. Hypertension. Blood pressure has been low-normal here, so holding his home isosorbide. I also discontinued Norvasc. 6. Anemia. Iron studies were suggestive of at least some level of deficiency. We will go ahead and start him on some oral iron. 7. Tobacco abuse. Patient has been advised on cessation. 8. Disposition. The patient is symptomatically improved, but still requiring large amounts of oxygen. We will try to wean that down and see if we can get him down to something reasonable. If we can get him down to 5 or 6 L, then can likely be sent home on that. I strongly suspect that he will have to go home on oxygen. 07/10/19 addendum: patient essentially optimized at this point from a respiratory standpoint. down to 4L O2 which likely represents his chronic hypoxic respiratory failure without any further acute component. MTDD
[2019-07-10] MEDS: SOLU-MEDROL IV SCH ×2 (00:30→09:23)
[2019-07-10] MEDS: DUONEB (A & A) INH SCH ×3 (03:27→12:02)
[2019-07-10 05:22] LABS: HEMATOCRIT 30.9 % (42.0-52.0); HEMOGLOBIN 9.7 g/dL (14.0-18.0); IMM GRAN# 0.07 X1000 (0.0-0.04); IMM GRAN% 0.5 % (0.0-0.5); LYMPH# 0.68 X1000 (1.2-3.4); LYMPH% 4.4 % (20.5-51.1); MCH 26.1 PG (27-31); MCHC 31.4 g/dL (33-37); MCV 83.1 FL (81-99); MONO# 0.87 X1000 (0.11-0.59); MONO% 5.7 % (1.7-9.3); MPV 9.2 FL (7.4-10.4); NEUT# 13.73 X1000 (1.4-6.5); NEUT% 89.4 % (42.2-75.2); PLT 254 X1000 (130-400); RBC 3.72 XMIL (4.7-6.1); RDW 16.4 % (11.5-14.5); WBC 15.35 X1000 (4.8-10.8)
[2019-07-10 05:48] LABS: CALCIUM 8.9 mg/dL (8.8-10.2); CREATININE 1.8 mg/dL (0.7-1.2); POTASSIUM 4.5 mmol/L (3.5-5.1)
[2019-07-10] MEDS: PRILOSEC PO SCH (06:31)
--- NOTE | 2019-07-10 06:44 | PULMONOLOGY PROGRESS NOTE ---
DATE: 07/09/2019 SUBJECTIVE: The patient is awake, alert, and conversant. Overall, he reports he feels better. OBJECTIVE: Vital Signs: Maximum temperature in the last 24 hours is 98.8, blood pressure 106/67, heart rate 91, respiratory rate 18, and oxygen saturation 92% on 6 L per nasal cannula. HEENT: Pupils are equal and reactive. Oropharynx appears clear. Neck: Supple. Lungs: Chest reveals prolonged expiratory phase. Cardiac: S1-S2. Abdomen: Obese and soft. Extremities: Reveal trace edema. LABORATORIES: Sodium 141, potassium 4.3, chloride 95, bicarbonate 42, BUN 59, and creatinine 1.8. Arterial blood gas reveals a pH 7.41, pCO2 of 62, pO2 of 75 on partial rebreather. IMPRESSION: A 63-year-old with: 1. Acute hypoxemic respiratory failure. 2. Hypoxemic respiratory failure. 3. Chronic hypercapnic respiratory failure. 4. Recurrent ascites. 5. Moderate to severe pulmonary hypertension. 6. Stage 3 to 4 kidney disease. 7. Acute on chronic cor pulmonale. 8. Nicotine addiction with ongoing tobacco use. RECOMMENDATIONS: 1. Continue oxygen to maintain saturations greater than 90%. It is anticipated he require oxygen at discharge. 2. Continue to encourage smoking cessation. 3. Agree with reinitiation of Lasix as you are doing. cc: David Babb MD
--- NOTE | 2019-07-10 07:22 | Diag Imaging Result Doc PS360 ---
EXAM: CHEST-PORTABLE INDICATION: dyspnea TECHNIQUE: One view COMPARISON: 07/08/2019 FINDINGS: The small left pleural effusion is approximately stable. There is adjacent atelectasis 9 at the left lung base that is grossly unchanged. Central vasculature is borderline prominent but essentially stable given the differences in technique. There is stable cardiomegaly. IMPRESSION: Essentially stable chest. Electronically signed by Rafa Schmidt 07/10/2019 7:20 AM
[2019-07-10] MEDS: SYMBICORT 160/4.5 MICROGM INHALER INH SCH (08:15)
[2019-07-10] MEDS: ISORDIL PO SCH (09:23)
[2019-07-10] MEDS: COREG PO SCH (09:24)
[2019-07-10] MEDS: FOLIC ACID PO SCH (09:24)
[2019-07-10] MEDS: ZYRTEC PO SCH (09:24)
[2019-07-10] MEDS: ZANTAC PO SCH (09:24)
[2019-07-10] MEDS: ELIQUIS PO SCH (09:24)
[2019-07-10 14:16] VITALS: BP 127/81
[2019-07-10] MEDS ORDERED: FLU VACCINE IM ONE (14:28)
--- NOTE | 2019-07-11 08:56 | DISCHARGE SUMMARY ---
ADMISSION DATE: 07/05/2019 DISCHARGE DATE: 07/10/2019 CONSULTATION: Pulmonology Dr. Babb. PROCEDURES: Large volume paracentesis with 7.2 L of fluid removed. PERTINENT STUDIES: Echocardiogram with marked pulmonary hypertension 69 to 74, EF 59%, dilated inferior vena cava, moderate mitral regurg. Unable to evaluate diastolic function because of atrial fibrillation. Chest x-rays with cardiomegaly, mild prominence of the vasculature and basilar interstitial markings, but her chest x-rays with small bilateral pleural effusions. Initial ABG with pH 7.48, pCO2 52, PO2 64 on 50% Ventimask. Last ABG performed with pH 7.41, pCO2 62, PO2 75. Admission creatinine 1.5; discharge creatinine 1.8. Initial BNP 9000; discharge BNP 7000. DISCHARGE DIAGNOSES: 1. Acute on likely chronic hypercarbic and hypoxic respiratory failure. 2. Chronic obstructive pulmonary disease with exacerbation. 3. Severe pulmonary hypertension. 4. Acute kidney injury on chronic kidney disease III. 5. Ascites likely secondary to alcoholic cirrhosis. 6. Paroxysmal atrial fibrillation. 7. Hypertension. 8. Anemia with iron deficiency number. 9. Tobacco abuse. HOSPITAL COURSE: Patient admitted initially with increasing shortness of breath and cough for approximately a week. It had become progressive over the 24 hours prior to admission to the point that he had difficulty sleeping. He was found to have significant hypoxia with sat down to 82. ABG also showed hypercapnia, although that was likely baseline. He did have wheezing and decreased air entry on admission. There was minimal edema on his x-ray, and it was thought that his pulmonary hypertension and it was like mild pulmonary edema were likely playing a role, but it looked primarily like severe COPD with exacerbation. The patient was placed on nebs, steroids. He was placed on antibiotics initially, but after several days no evidence of pneumonia or other acute infection was found. So, these were discontinued. The patient was also placed on diuretics initially, but creatinine trended up to 2.2, so diuretics were held. Subsequently the creatinine came back down to 1.8, which is not quite baseline, but given patient's tenuous respiratory status, diuretics were restarted once his creatinine improved. Thereafter, creatinine remained stable at 1.8. The patient was initially requiring non-rebreather and intermittent BiPAP with very slow improvement. On the day of discharge, we had been able to wean him down to 4 L of oxygen. On the night prior to discharge, the patient was strongly considering leaving AMA, but after discussion about how it was too late for him to be set up to home oxygen for the day and that his very high O2 requirements at that point, he eventually was amenable to staying. The next day however patient was adamant about leaving. Discussed with patient that although his O2 requirements were significantly improved, we are still adjusting his diuretics and his kidney function had not returned to his baseline. Nevertheless, the patient remained adamant about leaving. Rather than have the patient sign out AMA with no oxygen at all, we arranged home oxygen and adjusted his medications as best we could. Strongly advised the patient to have someone recheck his kidney function within the next few days, and to seek treatment immediately if his shortness of breath got worse or his urine output decreased. Aside from treating his COPD, the biggest improvement in his respiratory status came after he had paracentesis. Patient had pretty significant ascites on admission. Paracentesis was performed by IR who got 7.2 L off. The source of his ascites was thought to be alcoholic cirrhosis, although his bilirubin and LFTs remains essentially normal. The patient had mild, but stable anemia with hemoglobin in the 9's. Iron studies were checked and did show a degree of iron deficiency, so we went ahead and started him on some oral iron. Given his tenuous respiratory status, endoscopy was not pursued at this time. The patient was in and out of atrial fibrillation, but was largely in normal sinus rhythm during hospitalization. He was continued on his anticoagulation despite his iron deficiency as his blood counts appeared to be stable. There were no signs or symptoms of overt bleeding. DISCHARGE VITAL SIGNS: Temperature 97.7 degrees, pulse 96, blood pressure 127/81, O2 saturation 92% on 4 L by nasal cannula. DISCHARGE DIET: Low-salt. DISCHARGE MEDICATIONS: Atorvastatin 80 mg p.o. at bedtime, Coreg 25 mg p.o. b.i.d., Eliquis 5 mg p.o. b.i.d., fenofibrate 160 mg p.o. daily, Lasix 40 mg p.o. daily, isosorbide dinitrate 20 mg p.o. daily, metolazone 2.5 mg every other day, albuterol inhaler as needed, Symbicort inhaler as needed, Medrol Dosepak as prescribed, nicotine patch 20 mg daily as needed. FOLLOWUP AND PLAN: The patient advised that discharge at this time is not ideal, but he remains adamant on leaving. Arranging home oxygen. Continuing steroid taper. Strongly advised on smoking cessation. Continuing diuretics given patient's tenuous respiratory status, but strongly advised patient to get his kidney function rechecked in the next few days, and to seek care immediately if his urine output seems to be decreasing. TIME SPENT: Greater than 30 minutes spent arranging discharge and counseling patient.
[2019-07-11] MEDS ORDERED: SOLU-MEDROL IV SCH (09:00)
== END 2019-07-10 15:38 | disposition home or self-care (01) | DRG 189 ==
LOC: ED 13:10 → EDIPHOLD 13:11 → SUATTDRO 13:11 → 1N 18:20
PROVIDERS: ATTEND Internal Medicine